=== PATIENT | male | born 1970 | race Caucasian/White ===

== ENCOUNTER 2022-07-26 05:28 | Day surgery (SDC) | payer MEDICAID, SELFPAY ==
[2022-07-24 10:53] VITALS: BMI 25.0
[2022-07-26 06:11] VITALS: BP 121/81; PULSE 62; RESP 18; TEMP 36.1; O2SAT 99
[2022-07-26] MEDS: sodium chloride 0.9% 1,000 ML 30 ML IV (06:19)
--- NOTE | 2022-07-26 06:45 | ANES.PREANE2 ---
Pre-Anesthetic Assessment Height/Weight: Height 1.83 m Weight 83.915 kg Temp Pulse Resp BP Pulse Ox O2 Del Method 97.0 F L 62 18 121/81 99 07/26/22 06:11 07/26/22 06:11 07/26/22 06:11 07/26/22 06:11 07/26/22 06:11 07/26/22 06:11 Operation Date: 07/26/22 07:00 Proposed Procedures p Colonoscopy /POSS BIOPSY/POSS POLYECTOMY Z12.11,05196(Not Applicable) - Dominic Devries MD Familial anesthetic complications: none Last intake: Intake Last Liquid Date 07/25/22 Last Liquid Time 22:30 Last Solid Date 07/24/22 Social Alcohol (social) Airway Submandibular: within normal limits Cervical ROM: within normal limits Mallampati: Class II Dentition: full Pulmonary None reported CV/HEM None reported None reported history of renal stones Hepatic None reported GI None reported Metabolic None reported Musc/skel None reported Neuropsych PTSD Anesthetic Plan ASA status: 1 Medications/Allergies Home Medications Medication Instructions Recorded Confirmed Last Taken Type No Known Home Medications 07/24/22 07/26/22 Unknown History Allergies Allergy/AdvReac Type Severity Reaction Status Date / Time Sulfa (Sulfonamide Allergy Unknown Verified 07/26/22 06:10 Antibiotics) Current Medications Generic Name Dose Route Start Last Admin Trade Name Freq PRN Reason Stop Dose Admin Sodium Chloride 1,000 mls @ 30 mls/hr 07/26/22 06:00 07/26/22 06:19 Sodium Chloride 0.9% IV 07/27/22 05:59 30 mls/hr .Q24H MARIA L Administration Data Anesthesia Cardiac Studies: No Data to Display
--- NOTE | 2022-07-26 07:01 | P.HP_ITS ---
Providers/Chief Complaint Admitting Physician: Dominic Devries Primary Care Provider: Maribel Vieira MD History of Present Illness Kelvin Cruz is a 52 year old male who presents for a screening colonoscopy. The patient has no risk factors regarding colon cancer. He is not a diabetic. He does not take any anticoagulants Review of Systems General: Reports: 10 or more systems reviewed and unremarkable except in HPI and below Const: Denies: fever(s) Card: Denies: chest pain or irregular heart rhythm Resp: Denies: dyspnea Medications/Allergies Home Medications Medication Instructions Recorded Confirmed Last Taken Type No Known Home Medications 07/24/22 07/26/22 Unknown History Allergies Allergy/AdvReac Type Severity Reaction Status Date / Time Sulfa (Sulfonamide Allergy Unknown Verified 07/26/22 06:10 Antibiotics) Vital Signs Vitals Signs: Last Vital Signs Temp 97.0 F L 07/26/22 06:11 Pulse 62 07/26/22 06:11 Resp 18 07/26/22 06:11 BP 121/81 07/26/22 06:11 Pulse Ox 99 07/26/22 06:11 O2 Del Method 07/26/22 06:11 Weight: Weight last 48 hrs Weight 185 lb Physical Exam Const: COMMON NORMALS: no acute distress and patient oriented x3 GENERAL APPEARANCE: cooperative, comfortable and well developed HENMT: COMMON NORMALS: normocephalic and moist oral mucous membranes HEAD & SCALP: normocephalic Chest: COMMONS NORMALS: normal inspection of the chest Resp: COMMON NORMALS: normal respiratory effort and clear to auscultation bilaterally AUSCULTATION: clear to auscultation bilaterally Cardio: COMMON NORMALS: regular rate, regular rhythm, No gallops present (Cardio), No murmurs present (Cardio) and No rub (Cardio) RATE: regular rate RHYTHM: regular rhythm Extremity: COMMON NORMALS: normal to inspection Neuro: COMMON NORMALS: patient oriented x3 and no focal motor deficits Skin: COMMON NORMALS: no rashes or lesions noted GENERAL SKIN EXAM: no rashes or lesions noted A&P Assessment and plan (1) Colon cancer screening: We will proceed with the colonoscopy. We have discussed the risks of bleeding, infection, and sedation associated with a screening colonoscopy. The patient and his partner have no further questions and wishes to proceed Status: Acute Coding Level of Care Code Acute Internal Medicine Specialist for Ch[facility] Fwd Diagnoses Colon cancer screening Z12.11
[2022-07-26 07:30] VITALS: BP 93/54; PULSE 55; RESP 14; TEMP 36.6; O2SAT 96
[2022-07-26 07:40] VITALS: BP 100/58; PULSE 54; RESP 14; O2SAT 97
[2022-07-26 07:56] VITALS: BP 104/77; PULSE 53; RESP 16; O2SAT 100
--- NOTE | 2022-07-26 15:00 | ANE.PACU2 ---
Inpatient post-anesthesia follow up: Airway intact: Yes Vital signs: Temperature 97.8 F Pulse Rate 53 Respiratory Rate 16 Blood Pressure 104/77 Pulse Oximetry 100 Oxygen Delivery Me thod Room Air Oxygen Flow Rate Fraction of Inspir ed Oxygen Hydration adequate: Yes Nausea and vomiting: No Pain level: 1 Mental status: Baseline
== END 2022-07-26 08:11 | disposition home or self-care (01) ==
PROVIDERS: PCP Family Medicine; Visit Provider Family Medicine
PROC: 0DJD8ZZ Inspection of Lower Intestinal Tract, Via Natural or Artificial Opening Endoscopic (ICD-10-PCS; CPT 45378; principal; 2022-07-26 07:00)
DX: Z12.11 Encounter for screening for malignant neoplasm of colon (principal); Z87.891 Personal history of nicotine dependence; Z88.2 Allergy status to sulfonamides
CPT/HCPCS: 12345; 45378; G0121; J2704; J7030

== ENCOUNTER 2025-05-01 10:47 | Emergency (ER) | payer OTHER, SELFPAY ==
[2025-05-01 11:11] VITALS: BP 167/81; PULSE 66; RESP 17; TEMP 36.6; O2SAT 96; BMI 27.5
[2025-05-01 11:17] LABS: Basophils # 0.1 10^3/uL (0.0-0.1); Basophils % 0.9 %; Eosinophils # 0.1 10^3/uL (0.0-0.8); Eosinophils % 1.6 %; Hematocrit 48.4 % (37-53); Lymphocytes # 2.3 10^3/uL (0.8-4.8); Lymphocytes % 34.2 %; Mean Corpuscular HGB Conc 34.3 g/dL (30-55); Mean Corpuscular Hemoglobin 31.6 pg (27-33); Mean Platelet Volume 8.8 fL (7.4-10.4); Monocytes # 0.6 10^3/uL (0.2-0.9); Monocytes % 8.1 %; Neutrophils # 3.71 10^3/uL (1.8-7.7); Neutrophils % 55.1 %; Nucleated Red Blood Cells % 0 %; Platelet Count 244 10^3/cmm (157-399); Red Blood Count 5.26 10^6/uL (3.85-5.65); Red Cell Distribution Width 12.5 % (12.1-15.1); White Blood Count 6.75 10^3/uL (3.29-11.43)
[2025-05-01 11:29] LABS: Alanine Aminotransferase 31 U/L (0-41); Albumin Level 4.4 g/dL (3.5-5.2); Alkaline Phosphatase 83 U/L (40-130); Anion Gap 15.4 (5-19); Aspartate Amino Transferase 26 U/L (0-40); Blood Urea Nitrogen 13 mg/dL (6-20); Calcium 9.5 mg/dL (8.5-10.5); Carbon Dioxide 25 mmol/L (22-29); Chloride 101 mmol/L (98-107); Creatinine Clr Calc Pharmacy 121.6128; Globulin 3.3 g/dL (1.3-4.6); Glucose 99 mg/dL (65-115); Osmolality Calculated 284 mOsm/kg (285-295); Potassium 4.4 mmol/L (3.5-5.1); Sodium 137 mmol/L (136-145); Total Bilirubin 0.6 mg/dL (0.15-1.2); Total Protein 7.7 g/dL (6.6-8.7)
[2025-05-01 11:44] VITALS: BP 160/82; PULSE 67; O2SAT 100
[2025-05-01 11:47] LABS: Bilirubin Urine Negative (Negative); Blood Urine Negative (Negative); Glucose Urine UA Negative (Normal); Ketones Urine Negative (Negative); Leukocyte Esterase Urine Negative (Negative); Nitrate Urine Negative (Negative); Protein Urine Negative (Negative); Specific Gravity, Urine 1.013 (1.005-1.030); Urine Appearance Clear (CLEAR); Urine Color Yellow (Yellow); Urobilinogen Urine 0.2 mg/dL (Negative); pH Urine 6.5 (5-7)
--- NOTE | 2025-05-01 11:47 | CTR_ITS ---
PROCEDURE INFORMATION: Exam: CT Abdomen And Pelvis Without Contrast Exam date and time: 05/01/2025 12:01 PM Age: 55 years old Clinical indication: Abdominal pain; Flank; Left; Additional info: Flank pain TECHNIQUE: Imaging protocol: Computed tomography of the abdomen and pelvis without contrast. Radiation optimization: All CT scans at this facility use at least one of these dose optimization techniques: automated exposure control; mA and/or kV adjustment per patient size (includes targeted exams where dose is matched to clinical indication); or iterative reconstruction. COMPARISON: No relevant prior studies available. RADIATION DOSE METRICS: Total DLP (mGy-cm): 718.3 FINDINGS: Lungs: The lung bases are unremarkable. Heart: No pericardial effusion. Coronary arteries: Coronary arterial calcifications are noted. Diaphragm: No hiatal hernia. Liver: The liver is unremarkable. Gallbladder and biliary ducts: The gallbladder is unremarkable. Pancreas: The pancreas is unremarkable. Spleen: The spleen is unremarkable. Adrenal glands: The adrenal glands are unremarkable. 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 Nonobstructive renal stones are seen. No hydronephrosis or obstructing ureteral stone. Stomach and bowel: The stomach and small bowel are unremarkable. Mild prominence of the wall of the descending and sigmoid colon which may reflect underdistention. A mild colitis is a consideration. Appendix: The appendix is unremarkable. Intraperitoneal space: No free intraperitoneal air is seen. Vasculature: Retroaortic left renal vein. No abdominal aortic aneurysm. Lymph nodes: No retroperitoneal lymphadenopathy. Urinary bladder: The bladder wall is thickened. Reproductive: The prostate measures 3.8 x 4.4 cm. Bones/joints: No acute fracture is seen. Soft tissues: Tiny fat containing umbilical hernia. CT/CT kidney stone [id number] IMPRESSION: 1. 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 Nonobstructive renal stones are seen. No hydronephrosis or obstructive ureteral stone. 2. Mild prominence of the wall of the descending and sigmoid colon which may reflect underdistention. A mild colitis is a consideration. Correlate clinically. 3. The bladder wall is thickened. Considerations include underdistention, partial bladder outlet obstruction or cystitis. Correlate with urinalysis.
--- NOTE | 2025-05-01 11:47 | W.ED.MALEGU ---
HPI - Male Genitourinary General: Chief complaint: Urogenital-Male Stated complaint: lower back pain, trouble urinating, urgent care Time Seen by Provider: 05/01/25 11:44 Source: patient Mode of arrival: ambulatory Limitations: no limitations History of Present Illness: 55-year-old male states he has been having left-sided flank pain for roughly 5 days states pains been sharp in nature rates it a 6 out of 10 states has had kidney stones in the past feels similar has had some decreased urination denies any vomiting or diarrhea denies any fevers Associated symptoms: Deny dysuria, nausea or vomiting Related Data Home Medications ?Medication ?Instructions ?Recorded ?Confirmed acetaminophen 325 mg tablet 325 mg PO QID PRN Pain 05/01/25 05/01/25 (Tylenol) atorvastatin 40 mg tablet 40 mg PO QPM 05/01/25 05/01/25 diphenhydramine HCl 25 mg capsule 25 mg PO TID PRN Allergy Symptoms 05/01/25 05/01/25 (Benadryl) Previous Rx's ?Medication ?Instructions ?Recorded hydrocodone 5 mg-acetaminophen 325 1 tab PO Q6H PRN pain #14 tabs 05/01/25 mg tablet naproxen 500 mg tablet (Naprosyn) 500 mg PO BID PRN pain #20 tabs 05/01/25 Allergies Allergy/AdvReac Type Severity Reaction Status Date / Time Sulfa (Sulfonamide Allergy Unknown Verified 05/01/25 10:17 Antibiotics) Review of Systems Const: Denies: fever(s), chills, body aches or change in appetite ENMT: Denies: throat pain or dental pain Card: Denies: chest pain Resp: Denies: dyspnea GI: Denies: abdominal pain, nausea, vomiting or diarrhea : Reports: flank pain; Denies: dysuria Musc: Denies: neck pain or back pain Skin/Breast: Denies: rash Neuro: Denies: headache(s) PFSH ED PFSH: Social History Smoking and tobacco/nicotine status: former use of tobacco/nicotine Physical Exam Const: COMMON NORMALS: no acute distress, patient oriented x3 and healthy appearing HENMT: COMMON NORMALS: normocephalic and atraumatic HEAD & SCALP: normocephalic and atraumatic Neck/C-Spine: COMMON NORMALS: full ROM and supple Chest: COMMONS NORMALS: normal inspection of the chest Resp: COMMON NORMALS: normal respiratory effort Cardio: COMMON NORMALS: regular rate RATE: regular rate GI: COMMON NORMALS: Normal to inspection, nondistended, normoactive bowel sounds present, Soft to palpation, non-tender and no masses PALPATION: Yes Soft to palpation Extremity: COMMON NORMALS: normal to inspection and full ROM Neuro: COMMON NORMALS: patient oriented x3, moves all extremities and no focal motor deficits Psych: COMMON NORMALS: mental status grossly normal, Normal thought process present and cooperative THOUGHT PROCESS: Normal thought process present Skin: COMMON NORMALS: no rashes or lesions noted and no wounds GENERAL SKIN EXAM: no rashes or lesions noted Course Vital Signs: Vital signs: Vital Signs Temperature 97.9 F 05/01/25 11:11 Pulse Rate 66 05/01/25 11:11 Respiratory Rate 17 05/01/25 11:11 Blood Pressure 167/81 05/01/25 11:11 Pulse Oximetry 96 05/01/25 11:11 Oxygen Delivery Me thod Room Air 05/01/25 11:11 MDM - Male Medical Decision Making Patient presents here with flank pain CT showed no sign of kidney stone blood work urinalysis here is negative he is well-appearing here he stable for discharge follow-up PCP return if worsening he understands agrees to plan Medical Records I reviewed the patient's medical records. Lab Data I reviewed the patient's lab results. 05/01/25 11:07 05/01/25 11:07 Radiology Impressions Abdomen/Pelvis CT 05/01/25 11:47 IMPRESSION: 1. 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 Nonobstructive renal stones are seen. No hydronephrosis or obstructive ureteral stone. 2. Mild prominence of the wall of the descending and sigmoid colon which may reflect underdistention. A mild colitis is a consideration. Correlate clinically. 3. The bladder wall is thickened. Considerations include underdistention, partial bladder outlet obstruction or cystitis. Correlate with urinalysis. Laboratory Results WBC 6.75 10^3/uL (3.29-11.43) 05/01/25 11:07 RBC 5.26 10^6/uL (3.85-5.65) 05/01/25 11:07 Hgb 16.60 g/dL (11.27-16.99) 05/01/25 11:07 Hct 48.4 % (37-53) 05/01/25 11:07 MCV 92.0 fl (82-101) 05/01/25 11:07 MCH 31.6 pg (27-33) 05/01/25 11:07 MCHC 34.3 g/dL (30-55) 05/01/25 11:07 RDW 12.5 % (12.1-15.1) 05/01/25 11:07 Plt Count 244 10^3/cmm (157-399) 05/01/25 11:07 MPV 8.8 fL (7.4-10.4) 05/01/25 11:07 Neut % (Auto) 55.1 % 05/01/25 11:07 Lymph % (Auto) 34.2 % 05/01/25 11:07 Howell % (Auto) 8.1 % 05/01/25 11:07 Eos % (Auto) 1.6 % 05/01/25 11:07 Baso % (Auto) 0.9 % 05/01/25 11:07 Neut # (Auto) 3.71 10^3/uL (1.8-7.7) 05/01/25 11:07 Lymph # (Auto) 2.3 10^3/uL (0.8-4.8) 05/01/25 11:07 Howell # (Auto) 0.6 10^3/uL (0.2-0.9) 05/01/25 11:07 Eos # (Auto) 0.1 10^3/uL (0.0-0.8) 05/01/25 11:07 Baso # (Auto) 0.1 10^3/uL (0.0-0.1) 05/01/25 11:07 Nucleated RBC % (auto) 0 % 05/01/25 11:07 Nucleated RBCs # 0.0 /100WBC 05/01/25 11:07 Sodium 137 mmol/L (136-145) 05/01/25 11:07 Potassium 4.4 mmol/L (3.5-5.1) 05/01/25 11:07 Chloride 101 mmol/L (98-107) 05/01/25 11:07 Carbon Dioxide 25 mmol/L (22-29) 05/01/25 11:07 Anion Gap 15.4 (5-19) 05/01/25 11:07 BUN 13 mg/dL (6-20) 05/01/25 11:07 Creatinine 0.8 mg/dL (0.7-1.2) 05/01/25 11:07 GFR Calculation 100.0 mL/min (90-130) 05/01/25 11:07 Glucose 99 mg/dL (65-115) 05/01/25 11:07 Calculated Osmolality 284 mOsm/kg (285-295) L 05/01/25 11:07 Calcium 9.5 mg/dL (8.5-10.5) 05/01/25 11:07 Total Bilirubin 0.6 mg/dL (0.15-1.2) 05/01/25 11:07 AST 26 U/L (0-40) 05/01/25 11:07 ALT 31 U/L (0-41) 05/01/25 11:07 Alkaline Phosphatase 83 U/L (40-130) 05/01/25 11:07 Total Protein 7.7 g/dL (6.6-8.7) 05/01/25 11:07 Albumin 4.4 g/dL (3.5-5.2) 05/01/25 11:07 Globulin 3.3 g/dL (1.3-4.6) 05/01/25 11:07 Urine Color Yellow (Yellow) 05/01/25 11:43 Urine Appearance Clear (CLEAR) 05/01/25 11:43 Urine pH 6.5 (5-7) 05/01/25 11:43 Ur Specific [place] 1.013 (1.005-1.030) 05/01/25 11:43 Urine Protein Negative (Negative) 05/01/25 11:43 Urine Glucose (UA) Negative (Normal) 05/01/25 11:43 Urine Ketones Negative (Negative) 05/01/25 11:43 Urine Blood Negative (Negative) 05/01/25 11:43 Urine Nitrate Negative (Negative) 05/01/25 11:43 Urine Bilirubin Negative (Negative) 05/01/25 11:43 Urine Urobilinogen 0.2 mg/dL (Negative) 05/01/25 11:43 Ur Leukocyte Esterase Negative (Negative) 05/01/25 11:43 Urine RBC 0-2 /hpf (0-2) 05/01/25 11:43 Urine WBC 0-5 /hpf (0-5) 05/01/25 11:43 Ur Squamous Epith Cells 0-5 /hpf (0-5) 05/01/25 11:43 Amorphous Sediment Not Reportable 05/01/25 11:43 Urine Bacteria None seen /hpf (NONE) 05/01/25 11:43 Hyaline Casts 0-4 /lpf H 05/01/25 11:43 All radiology interpretation(s) finalized by discharge Discharge Plan Discharge Patient Disposition: Home Clinical Impression: Flank pain Condition: Stable Prescriptions: New hydrocodone-acetaminophen 5-325 mg tablet 1 tab PO Q6H PRN (Reason: pain) Qty: 14 0RF naproxen [Naprosyn] 500 mg tablet 500 mg PO BID PRN (Reason: pain) Qty: 20 0RF No Action acetaminophen [Tylenol] 325 mg tablet 325 mg PO QID PRN (Reason: Pain) atorvastatin 40 mg tablet 40 mg PO QPM diphenhydramine HCl [Benadryl] 25 mg Capsule 25 mg PO TID PRN (Reason: Allergy Symptoms) Discharge Orders: Discharge ED (Routine); Ordered 05/01/25 Ordered By: Beti Ellington Referrals: Maribel Vieira MD [Primary Care Provider, [facility]] Discharge Diet: Advance as tolerated Discharge Activity: Resume usual activity Patient Instructions: Flank Pain (ED), Opioid Safety Print Language: Danish Coding Level of Care Code ED President [employer] for [employer]ba Presley
[2025-05-01 11:50] LABS: Add Urine Microscopic? YES; Bacteria Urine None Seen /hpf; Hyaline Casts Urine 0-4 /lpf; RBC Urine 0-2 /hpf (0-2); Squamous Epithelial Cell Urine 0-5 /hpf (0-5); WBC Urine 0-5 /hpf (0-5)
[2025-05-01] MEDS: ketorolac 30 mg/mL INJ 15 MG IVP (11:56)
[2025-05-01 13:44] VITALS: BP 168/86; PULSE 68; RESP 18; O2SAT 99
[2025-05-01 13:57] VITALS: RESP 18; O2SAT 100
[2025-05-01] MEDS: morphine 4 mg/mL SDV 1 mL IVP (13:57)
[2025-05-01 14:20] VITALS: BP 159/84; PULSE 80; O2SAT 94
== END 2025-05-01 14:21 | disposition home or self-care (01) ==
PROVIDERS: Emergency Provider Emergency Medicine; PCP Family Medicine
DX: R10.9 Unspecified abdominal pain (principal); Z87.891 Personal history of nicotine dependence
CPT/HCPCS: 74176; 80053; 81001; 85025; 96374; 96375; 99285; J1885; J2270

== ENCOUNTER 2025-05-26 15:39 | Outpatient (CLI) | payer OTHER, SELFPAY ==
--- NOTE | 2025-05-26 15:51 | CT_ITS ---
WS: [id number] CT ABDOMEN PELVIS TECHNIQUE: Noncontrast CT of the abdomen and pelvis with coronal and sagittal reformatted images. CLINICAL INFORMATION: HORSEHOE KIDNEY, BILATERAL NEPHROLITHIATSIS COMPARISON: CT 05/01/2025 DLP: 553.[address] scans at [facility] use at least one of these dose optimization techniques: automated exposure control; mA and/or kV adjustment per patient size (includes targeted exams where dose is matched to clinical indication); or iterative reconstruction. FINDINGS: Lung bases are well aerated. Normal noncontrast liver. Normal noncontrast spleen. Noncontrast pancreas is normal. Small esophageal hiatal hernia. Normal caliber abdominal aorta. Aortic calcification. Noncontrast gallbladder is normal. Normal adrenal glands. Horseshoe kidney with tiny nonobstructing calyceal tip calculi. Duplicated collecting systems bilaterally. No hydronephrosis in either kidney. No obstructing renal or ureteral calculi. Pelvic phleboliths. Mild bladder wall thickening unchanged compared to previous. Small cystocele. Normal appendix in the RIGHT lower quadrant. No free fluid in the abdomen or pelvis. Prostate measures 4.1 cm with a few calcifications. Correlation PSA. CT/CT kidney stone [id number] IMPRESSION: 1. 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 No obstruct ing renal or ureteral calculi. Tiny nonobstructing calyceal tip calculi bilater ally similar to previous. 2. Mild circumferential bladder wall thickening with small cystocele. This can be seen with chronic cystitis and bladder outlet obstruction. 3. Mild prostate enlargement measuring 4.1 cm. Recommend correlation PSA. 4. Small esophageal hiatal hernia. 5. No other acute findings.
== END 2025-05-26 15:40 | disposition home or self-care (01) ==
LOC: RAD 15:43
PROVIDERS: PCP Family Medicine; Visit Provider Nurse Practitioner Family
DX: N20.0 Calculus of kidney (principal); Q63.1 Lobulated, fused and horseshoe kidney; N32.89 Other specified disorders of bladder; N40.0 Benign prostatic hyperplasia without lower urinary tract symptoms
CPT/HCPCS: 74176

== ENCOUNTER 2025-10-07 14:57 | Outpatient (CLI) | payer OTHER, SELFPAY ==
--- NOTE | 2025-10-07 15:01 | USR_ITS ---
PROCEDURE INFORMATION: Exam: US Retroperitoneal, Complete, Kidneys and Bladder Exam date and time: 10/07/2025 3:21 PM Age: 55 years old Clinical indication: Abdominal pain; Generalized; PT statess HX of bilateral kidney stones x few months. ; Additional info: Bilateral nephrolithiasis, PT having xray too TECHNIQUE: Imaging protocol: Real-time ultrasound of the retroperitoneum with image documentation. Complete exam focused on the bilateral kidneys and urinary bladder. COMPARISON: CT kidney stone [id number] 05/26/2025 3:58 PM FINDINGS: Kidneys: Horseshoe configuration of both kidneys. No obvious hydronephrosis. No contour deforming mass. No definite nephrolithiasis. Cholelithiasis is incidentally identified. US/US renal BI w/PV bladder [id number] IMPRESSION: As above.
--- NOTE | 2025-10-07 15:01 | XRR_ITS ---
PROCEDURE INFORMATION: Exam: XR Abdomen Exam date and time: 10/07/2025 3:45 PM Age: 55 years old Clinical indication: Condition or disease; Kidney or ureter condition; Other: Bilateral nephrolithias TECHNIQUE: Imaging protocol: Radiologic exam of the abdomen. Views: Frontal supine view of the abdomen. 1 View. COMPARISON: CT kidney stone [id number] 05/26/2025 3:58 PM FINDINGS: Gastrointestinal tract: The bowel gas pattern is unremarkable. Organs: No radiopaque renal stones are visible. Vasculature: There are calcified pelvic phleboliths. Bones/joints: Unremarkable. XR/XR KUB [id number] IMPRESSION: No radiopaque renal stones. Stones <4 mm in size may not be visible radiographically.
== END 2025-10-07 14:58 | disposition home or self-care (01) ==
LOC: RAD 14:57
PROVIDERS: PCP Family Medicine; Visit Provider Urology
DX: N20.0 Calculus of kidney (principal); K80.20 Calculus of gallbladder without cholecystitis without obstruction; I87.8 Other specified disorders of veins
CPT/HCPCS: 74018; 76770; 76857